=== PATIENT | male | born 1985 | race Caucasian/White ===

== ENCOUNTER 2022-03-11 20:03 | Emergency (ER) | payer OTHER ==
[2022-03-11 20:24] VITALS: BP 118/83; PULSE 63; TEMP 98.9; BMI 26.6
== END 2022-03-11 20:32 | disposition home or self-care (01) ==
LOC: FER 20:03
DX: S61.411A Laceration without foreign body of right hand, initial encounter (principal); W29.8XXA Contact with other powered hand tools and household machinery, initial encounter
CPT/HCPCS: 99281-25